=== PATIENT | female | born 1930 | race Caucasian/White ===

== ENCOUNTER 2017-07-02 03:48 | Emergency (ER) | payer MEDICARE, MEDICAID ==
[~2017-07-02] VITALS: Ht 165.1 cm; Wt 55.8 kg
[~2017-07-02 03:48] MED LIST: ATOR10TA PO; BETA15CR4 TP; BISM262O28 PO; CALC-23 PO; CHOL100045 PO; CITA20TA19 PO; CLOT15CR63 TP; DONE10TA44 PO; LEVO100T10 PO; NEO/5DRO3 LEFTEYE; OMEP20CA10 PO
[2017-07-02] MEDS ORDERED: OMEP20CA10 PO (04:08)
[2017-07-02] MEDS ORDERED: IV NORMAL SALINE 1000 ML BAG IV ONE (04:15)
--- NOTE | 2017-07-02 04:45 | NUR ---
Pt ambulated to room with slow steady shuffled gait. Pt changed into gown. Pt c/o abd pain and diarrhea last two days but denies N/V. Per daughter pt has history of c-diff. Pt also c/o pain and itching to left eye. Left eye is red with a discharge. Pt seen by Dr. Kidd. UA collected and sent. IV established, labs drawn and sent. Fluid bolus infusing freely to gravity. EKG obtained- NSR. Pt resting in position of comfort for self.
[2017-07-02 04:51] LABS: BASOPHILS % (AUTO) 0.6 % (0.0-2.0); EOSINOPHILS # (AUTO) 0.1 K/uL (0.0-0.7); EOSINOPHILS % (AUTO) 1.6 % (0.0-7.0); HEMATOCRIT 44.4 % (37-47); HEMOGLOBIN 14.4 G/DL (12.0-16.0); LYMPHOCYTES # (AUTO) 2.3 K/UL (0.8-4.8); LYMPHOCYTES % (AUTO) 34.1 % (20.5-51.5); MEAN CORPUSCULAR HEMOGLOBIN 29.9 UUG (27.0-31.0); MEAN CORPUSCULAR HGB CONC 33 g/dL (32.0-37.0); MONOCYTES # (AUTO) 0.5 K/UL (0.1-1.30); MONOCYTES % (AUTO) 7.6 % (0.0-11.0); NEUTROPHILS # (AUTO) 3.9 K/UL (1.8-8.9); NEUTROPHILS % (AUTO) 56.1 % (38.5-71.5); PLATELET COUNT (AUTO) 232 K/UL (150-450); RED BLOOD CELL COUNT(AUTO) 4.82 MIL/UL (4.2-5.4); WHITE BLOOD COUNT (AUTO) 6.8 K/UL (4.0-11.2)
[2017-07-02 05:00] LABS: *BILIRUBIN,URIN NEGATIVE (NEGATIVE); *BLOOD, URINE 1+ (NEGATIVE); *CLARITY,URINE SLIGHTLY CLOUDY (CLEAR); *COLOR,URINE YELLOW (YELLOW); *KETONES,URINE NEGATIVE (NEGATIVE); *PROTEIN,URINE NEGATIVE (NEGATIVE); *UROBILINOGEN,URINE 0.2 E.U./dl (NORMAL); LEUKOCYTE ESTERASE ,URINE TRACE (NEGATIVE); NITRITE, URINE POSITIVE (NEGATIVE); PH,URINE 5.5 (5.0-8.0); UGLUCOSE NEGATIVE (NEGATIVE)
[2017-07-02 05:09] LABS: BACTERIA,URINE MODERATE /HPF (NONE SEEN); SQUAMOUS EPITHELIAL CELL,UR FEW /HPF (NONE SEEN)
--- NOTE | 2017-07-02 05:10 | NUR ---
Pt c/o pain to L. eye. Dr. Kidd notified and pt medicated with eye drops with positive relief. Pt reminded several times not to touch or scratch eye but will forget. Eye patch applied to keep pt from touching it. Pt to radiology via [facility]
[2017-07-02] MEDS ORDERED: PROPARACAINE 0.5% OPHT DROP 15 ML BOTTLE OP ONE (05:15)
[2017-07-02 05:16] LABS: CARBON DIOXIDE 29 mmol/L (21-32); CHLORIDE 104 mmol/L (98-107); GLUCOSE 87 mg/dL (74-106); POTASSIUM 3.8 mmol/L (3.5-5.1); UREA NITROGEN, BLOOD 27 mg/dL (7-18)
[2017-07-02 05:20] LABS: ALANINE AMINOTRANSFERASE 20 U/L (14-59); ALKALINE PHOSPHATASE 126 U/L (50-136); ASPARTATE AMINOTRANSFERASE 22 U/L (15-37); BILIRUBIN,DIRECT 0.1 mg/dL (0.0-0.2); BILIRUBIN,TOTAL 0.7 mg/dL (0.2-1.0); LIPASE 273 U/L (73-393)
[2017-07-02] MEDS ORDERED: PROPARACAINE 0.5% OPHT DROP 15 ML BOTTLE ONE (05:21)
--- NOTE | 2017-07-02 05:40 | NUR ---
Pt returned from radiology via gurney. Pt resting in position of comfort for self. Sts eye feels better. Fluid bolus cont infusing freely to gravity.
--- NOTE | 2017-07-02 06:57 | NUR ---
Pt stable for discharge per MD. IV dc'd, catheter intact. Drsg applied. No problems noted to site. Daughter(DPOA) given ACI. Daughter verbalized understanding of dc instructions. Pt ambulated out of ER with steady gait, one person assist.
[2017-07-02 07:00] VITALS: BP 164/78
== END 2017-07-02 07:01 | disposition home or self-care (01) ==
LOC: ER 03:52
DX: R10.33 Periumbilical pain (principal); E78.5 Hyperlipidemia, unspecified; G30.9 Alzheimer's disease, unspecified; F32.9 Major depressive disorder, single episode, unspecified; I10 Essential (primary) hypertension; J44.9 Chronic obstructive pulmonary disease, unspecified; K21.9 Gastro-esophageal reflux disease without esophagitis; M81.0 Age-related osteoporosis without current pathological fracture; Z82.49 Family history of ischemic heart disease and other diseases of the circulatory system; Z95.5 Presence of coronary angioplasty implant and graft; Z90.49 Acquired absence of other specified parts of digestive tract; Z79.899 Other long term (current) drug therapy
CPT/HCPCS: 36415; 71010; 74176; 80048; 80076; 81001; 83605; 83690; 84484; 85025; 85730; 87040; 87086; 93005; 96360; 96361; 99285; A4663; J7030; 70030-TC